=== PATIENT | female | born 1995 | race Two or more races ===

== ENCOUNTER 2021-04-21 20:57 | Emergency (ER) | payer MEDICAID ==
[~2021-04-21] VITALS: Ht 154.9 cm; Wt 81.8 kg
[2021-04-21 21:00] VITALS: BP 135/80
--- NOTE | 2021-04-21 21:07 | NUR ---
PT SEEN IN TRAIGE BY PA. AWARE OF PLAN FOR LABS & U/S.
[2021-04-21 21:20] LABS: BASOPHILS % (AUTO) 1 % (0-1); EOSINOPHILS % (AUTO) 2 % (1-7); LYMPHOCYTES % (AUTO) 33 % (22-44); MD NO; MEAN CORPUSCULAR HEMOGLOBIN 30.3 pg (27.0-34.8); MEAN CORPUSCULAR HGB CONC 34.8 g/dL (32.4-35.8); MEAN PLATELET VOLUME 7.9 fL (7.4-10.4); MONOCYTES % (AUTO) 7 % (2-9); NEUTROPHILS % (AUTO) 58 % (42-75); PLATELET COUNT 272 x10^3/uL (130-400); RED BLOOD COUNT 4.66 x10^6/uL (3.82-5.3); RED CELL DISTRIBUTION WIDTH 13.3 % (9.6-15.2)
[2021-04-21 21:32] LABS: ALBUMIN 3.1 g/dL (3.4-5.0); ANION GAP 7 mmol/L (5-15); CALCIUM 8.4 mg/dL (8.5-10.1); CHLORIDE 108 mmol/L (98-107); CREATININE 0.51 mg/dL (0.55-1.02)
--- NOTE | 2021-04-21 22:23 | NUR ---
PT PLACED IN ROOM. NO ACUTE DISTRESS. SIDERAILS UP X2 CALL LIGHT WITHIN REACH.
--- NOTE | 2021-04-21 22:26 | NUR ---
UA CUP PROVIDED TO PT, SHE STATES SHE JUST VOIDED BUT WILL GET US A SAMPLE SOON SHE CAN.
== END 2021-04-21 23:26 | disposition home or self-care (01) ==
LOC: ED 22:25
DX: O26.891 Other specified pregnancy related conditions, first trimester (principal); R10.32 Left lower quadrant pain; Z3A.12 12 weeks gestation of pregnancy
CPT/HCPCS: 36415; 76801; 80048; 82040; 84702; 85025; 99284